=== PATIENT | male | born 1945 | race Caucasian/White ===

== ENCOUNTER 2019-11-13 02:30 | Emergency (ER) | payer SELFPAY ==
--- NOTE | 2019-11-13 02:38 | NUR ---
pt not in lobby when called.
--- NOTE | 2019-11-13 02:43 | NUR ---
2ND CALL PT NOT IN LOBBY
== END 2019-11-13 02:58 | disposition left against medical advice (07) ==
LOC: ED 02:53
DX: Z53.21 Procedure and treatment not carried out due to patient leaving prior to being seen by health care provider (principal)